=== PATIENT | male | born 1945 | race Caucasian/White ===

== ENCOUNTER 2022-02-07 08:11 | Day surgery (SDC) | payer MEDICARE, MEDICAID ==
[2022-02-07] VITALS (8 sets, daily range): BP systolic 100–127; BP diastolic 40–67
[~2022-02-07] VITALS: Ht 188 cm; Wt 118.0 kg
[~2022-02-07 08:11] MED LIST: ceFAZolin inj. 2,000 MG in dextrose 5%-water 100 ML IV ONE; normal saline 1000ml 1,000 ML IV SCH; vancomycin 1,500 MG in NS 300ml IV soln IV ONE
[2022-02-07] MEDS ORDERED: APIX2.5T PO (08:56)
[2022-02-07] MEDS ORDERED: ACET-890 PO (08:56)
[2022-02-07] MEDS ORDERED: SITA100T15 PO (08:56)
[2022-02-07] MEDS ORDERED: MULT-227 PO (08:56)
[2022-02-07] MEDS ORDERED: CARV25TA2 PO (08:56)
[2022-02-07] MEDS ORDERED: METF-900 PO (08:56)
[2022-02-07] MEDS ORDERED: FURO40TA4 PO (08:56)
[2022-02-07] MEDS ORDERED: SPIR25TA5 PO (08:56)
[2022-02-07] MEDS ORDERED: LEVO75TA7 PO (08:56)
[2022-02-07] MEDS ORDERED: PRED10TA PO (08:56)
[2022-02-07] MEDS ORDERED: AZIL80TA PO (08:56)
[2022-02-07] MEDS ORDERED: ONDA4TAB12 PO (08:56)
[2022-02-07] MEDS ORDERED: SIMV-45 PO (08:56)
[2022-02-07] MEDS ORDERED: FLO0.4C PO (08:56)
[2022-02-07] MEDS ORDERED: CITA20TA28 PO (08:56)
[2022-02-07] MEDS ORDERED: PIOG30TA71 PO (08:56)
[2022-02-07] MEDS ORDERED: FERR325T28 PO (08:56)
[2022-02-07 09:12] LABS: ALBUMIN 2.9 G/DL (3.4-5.0); ANION GAP 8 (8-16); BLOOD UREA NITROGEN 69 MG/DL (7-18); BUN/CREATININE RATIO 19.8 (5.4-32.0); CHLORIDE 106 MMOL/L (99-107); CREATININE 3.48 MG/DL (0.60-1.10); GLUCOSE 86 MG/DL (70-104); POTASSIUM 4.4 MMOL/L (3.5-5.1); SODIUM 143 MMOL/L (135-145); TOTAL CARBON DIOXIDE 28.9 MMOL/L (24-32); eGFR 17 ML/MIN
[2022-02-07 09:14] LABS: BASOPHILS # (AUTO) 0.1 X10'3 (0-0.2); BASOPHILS % (AUTO) 0.7 % (0-1); EOSINOPHILS # (AUTO) 0.1 X10'3 (0-0.9); EOSINOPHILS % (AUTO) 0.9 % (0-6); HEMATOCRIT 29.6 % (42.0-52.0); HEMOGLOBIN 9.4 g/dl (14.0-17.9); MEAN CORPUSCULAR HEMOGLOBIN 24.5 PG (27.0-31.0); MEAN CORPUSCULAR HGB CONC 31.6 g/dL (33.0-36.5); MEAN CORPUSCULAR VOLUME 77.3 FL (78-98); MEAN PLATELET VOLUME 7.2 FL (7.4-10.4); MONOCYTES # (AUTO) 0.7 X10'3 (0-0.9); MONOCYTES % (AUTO) 7.8 % (2-12); NEUTROPHILS # (AUTO) 6.5 X10'3 (1.8-7.7); NEUTROPHILS % (AUTO) 69.6 % (42-75); PLATELET COUNT 376 X10'3 (140-440); RED BLOOD COUNT 3.83 X10'6 (4.70-6.10); RED CELL DISTRIBUTION WIDTH 21.8 % (11.5-14.5); WHITE BLOOD COUNT 9.3 X10'3 (4.5-11.0)
[2022-02-07] MEDS ORDERED: LIDOCAINE 2% w/EPI 1:100:000 30mL injection MDV**cath lab 1 only ONE (10:46)
[2022-02-07] MEDS ORDERED: vancomycin 1,000mg inj ONE (10:46)
[2022-02-07] MEDS ORDERED: midazolam 1 mg/ML 2ml injection ONE ×2 (10:46→11:39)
[2022-02-07] MEDS ORDERED: fentaNYL/PF 50MCG/1 ML 2ML syringe ONE (10:46)
[2022-02-07 11:00] LABS: ANISOCYTOSIS 3+; MICROCYTOSIS 1+; PLATELET ESTIMATE NORMAL
[2022-02-07 11:01] LABS: ELLIPTOCYTES 1+; SCHISTOCYTES FEW
[2022-02-07] MEDS ORDERED: normal saline 500ml IV soln 400 ML IV SCH (12:54)
[2022-02-07] MEDS ORDERED: HYDROcodone/acetaminophen 5mg/325mg tablet PO PRN (12:55)
[2022-02-07] MEDS ORDERED: HYDROcodone/acetaminophen 10/325mg tab PO PRN (12:55)
== END 2022-02-07 15:30 ==
LOC: SSTAY O 08:11
PROVIDERS: ATTEND Internal Medicine Cardiovascular Disease
DX: Z45.02 Encounter for adjustment and management of automatic implantable cardiac defibrillator (principal); I42.0 Dilated cardiomyopathy; I47.2 Ventricular tachycardia; I44.7 Left bundle-branch block, unspecified; Z79.899 Other long term (current) drug therapy; I48.0 Paroxysmal atrial fibrillation; I50.9 Heart failure, unspecified; I11.0 Hypertensive heart disease with heart failure; I25.119 Atherosclerotic heart disease of native coronary artery with unspecified angina pectoris; Z95.818 Presence of other cardiac implants and grafts; E03.9 Hypothyroidism, unspecified; E11.9 Type 2 diabetes mellitus without complications; I48.92 Unspecified atrial flutter; E78.5 Hyperlipidemia, unspecified; J45.909 Unspecified asthma, uncomplicated; Z98.890 Other specified postprocedural states; Z90.49 Acquired absence of other specified parts of digestive tract; Z88.8 Allergy status to other drugs, medicaments and biological substances
CPT/HCPCS: 33264; 36415; 80048; 82948; 83735; 85025; 85610; 93005; 99152; 99153; C1882; J2250; J3010; J3370; J3490; J7030; J7040; 85008; A4620; A6258

== ENCOUNTER 2022-06-05 09:57 | Outpatient (CLI) | payer OTHER, MEDICAID ==
[~2022-06-05 09:57] MED LIST changes: +ACET-890 PO; +APIX2.5T PO; +AZIL80TA PO; +CARV25TA2 PO; +CITA20TA28 PO; +FERR325T28 PO; +FLO0.4C PO; +FURO40TA4 PO; +LEVO75TA7 PO; +METF-900 PO; +MULT-227 PO; +ONDA4TAB12 PO; +PIOG30TA71 PO; +PRED10TA PO; +SIMV-45 PO; +SITA100T15 PO; +SPIR25TA5 PO; -ceFAZolin inj. 2,000 MG in dextrose 5%-water 100 ML IV ONE; -normal saline 1000ml 1,000 ML IV SCH; -vancomycin 1,500 MG in NS 300ml IV soln IV ONE
== END 2022-06-05 23:59 | disposition home or self-care (01) ==
LOC: RAD 09:57
PROVIDERS: ATTEND Family Medicine
DX: M86.8X7 Other osteomyelitis, ankle and foot (principal); M65.871 Other synovitis and tenosynovitis, right ankle and foot; M62.571 Muscle wasting and atrophy, not elsewhere classified, right ankle and foot
CPT/HCPCS: 70551; 73718

== ENCOUNTER 2022-06-12 09:22 | Outpatient (CLI) | payer OTHER, MEDICAID | END 2022-06-12 23:59 | disposition home or self-care (01) | LOC: RAD 09:22 | PROVIDERS: ATTEND Family Medicine | DX: S83.282A Other tear of lateral meniscus, current injury, left knee, initial encounter (principal); M17.12 Unilateral primary osteoarthritis, left knee; R26.89 Other abnormalities of gait and mobility; X58.XXXA Exposure to other specified factors, initial encounter; Y93.89 Activity, other specified; Y92.89 Other specified places as the place of occurrence of the external cause; Y99.8 Other external cause status | CPT/HCPCS: 73721 ==